=== PATIENT | male | born 1950 | race Asian ===

== ENCOUNTER → 2019-10-13 | Outpatient (CLI) | payer OTHER | LOC: SJCVC 10:38 | PROVIDERS: ATTEND Family Medicine | DX: I49.3 Ventricular premature depolarization (principal); I10 Essential (primary) hypertension; R60.9 Edema, unspecified; Z79.899 Other long term (current) drug therapy; Z82.49 Family history of ischemic heart disease and other diseases of the circulatory system ==

== ENCOUNTER → 2019-11-03 | Outpatient (CLI) | payer OTHER | LOC: SJCVCIMAG 09:30 | PROVIDERS: ATTEND Internal Medicine Cardiovascular Disease | DX: I08.1 Rheumatic disorders of both mitral and tricuspid valves (principal); I10 Essential (primary) hypertension; Z79.899 Other long term (current) drug therapy ==